=== PATIENT | male | born 1980 ===

== ENCOUNTER 2018-08-28 16:30 | Emergency (ER) | payer BC, OTHER ==
--- NOTE | 2018-08-28 18:31 | UC ---
Cardiac HPI - History of Current Complaint Chief Complaint: UCGeneralIllness Stated Complaint: RIB PAIN Time Seen by Provider: 08/28/18 18:12 Pain Intensity: 7 - Allergy/Home Medications Allergies/Adverse Reactions: Allergies Allergy/AdvReac Type Severity Reaction Status Date / Time No Known Allergies Allergy Verified 08/28/18 16:44 Home Medications: Home Medications Hydrocortisone 0.5% CM(NF) [Hydrocortisone 0.5% CREAM(NF)] 1 applic TOPICAL DAILY 08/28/18 [History Confirmed 08/28/18] PMH/Surg Hx/FS Hx/Imm Hx Previously Healthy: Yes - Surgical History Surgical History: Yes Surgery Procedure, Year, and Place: tonsils - Social History Alcohol Use: Weekly Alcohol Amount: weekends Substance Use Type: None Smoking Status (MU): Light Every Day Tobacco Smoker Physical Exam Vital Signs: Initial Vital Signs Temp 99 F 08/28/18 16:40 Pulse 85 08/28/18 16:40 Resp 18 08/28/18 16:40 BP 158/105 08/28/18 16:40 Pulse Ox 100 08/28/18 16:40 Discharge - Discharge Plan Referrals: No Primary Care Phys,NOPCP [Primary Care Provider] -
[2018-08-28] MEDS ORDERED: Famotidine TAB* 20 MG PO ONE (18:53)
[2018-08-28] MEDS ORDERED: Ketorolac INJ* 30 MG/ML 1 ML VIAL IM ONE (18:54)
--- NOTE | 2018-08-28 20:20 | UC ---
Abdominal Pain Male HPI - History of Current Complaint Chief Complaint: UCGeneralIllness Stated Complaint: RIB PAIN Time Seen by Provider: 08/28/18 18:12 Pain Intensity: 7 - Allergies/Home Medications Allergies/Adverse Reactions: Allergies Allergy/AdvReac Type Severity Reaction Status Date / Time No Known Allergies Allergy Verified 08/28/18 16:44 Home Medications: Home Medications Hydrocortisone 0.5% CM(NF) [Hydrocortisone 0.5% CREAM(NF)] 1 applic TOPICAL DAILY 08/28/18 [History Confirmed 08/28/18] PMH/Surg Hx/FS Hx/Imm Hx - Surgical History Surgical History: Yes Surgery Procedure, Year, and Place: tonsils, testicular surgery 2011 - Social History Alcohol Use: Weekly Alcohol Amount: weekends Substance Use Type: None Smoking Status (MU): Light Every Day Tobacco Smoker Physical Exam - Summary Physical Exam Summary: Vital Signs Reviewed: Yes General: well developed, well nourished male sitting in the examining table w/o any apparent distress Eyes: Positive: Conjunctiva Clear - PERRLA, EOMI, fundi grossly normal ENT: Positive: Normal ENT inspection, Hearing grossly normal, Pharynx normal, Nasal congestion - edematous and erythematous nasal mucosa, Nasal drainage - yellowish drainage, TMs normal. Negative: Tonsillar swelling, Tonsillar exudate Neck: Positive: Supple, Nontender, No Lymphadenopathy Respiratory: no orthopnea or dyspnea. Able to speak in full sentences, no retractions or accessory muscle use, no tripod position, stridor, or head bobbing. Positive breath sounds bilaterally. diffuse scattered wheezing and rhonchi on b/L lungs, no crackles or rales. Cardiovascular: Positive: RRR, No Murmur, Pulses Normal, Brisk Capillary Refill Abdomen Description: Positive: Nontender, No Organomegaly, Soft. Negative: CVA Tenderness (R), CVA Tenderness (L) Bowel Sounds: Positive: Present Musculoskeletal Exam: Normal Musculoskeletal: Positive: Strength Intact, ROM Intact, No Edema Neurological Exam: Normal Psychological Exam: Normal Skin Exam: Normal Triage Information Reviewed: Yes Vital Signs: Initial Vital Signs Temp 99 F 08/28/18 16:40 Pulse 85 08/28/18 16:40 Resp 18 08/28/18 16:40 BP 158/105 08/28/18 16:40 Pulse Ox 100 08/28/18 16:40 Abd Pain Male Course/Dx - Differential Dx/Clinical Impression Differential Diagnosis/HQI/PQRI: Pancreatitis, Peptic Ulcer Disease, Urinary Tract Infection, Other - rib contusion, spleen injury, abdominal contusion Provider Diagnosis: Contusion of rib on left side, Abdominal wall contusion, Elevated BP without diagnosis of hypertension Discharge - Sign-Out/Discharge Documenting (check all that apply): Patient Departure - D/C home All imaging exams completed and their final reports reviewed: Yes - Discharge Plan Condition: Stable Disposition: HOME Patient Education Materials: Rib Contusion (ED), Contusion in Adults (ED) Forms: *Work Release Referrals: [facility] [Outside] Additional Instructions: 1-Please take ibuprofen PO q6-8hrs prn as instructed after meals to alleviate pain and swelling. Please take famotidine PO as directed to protect your GI system while taking Ibuprofen PO. rest and avoid strenuous exercise or heavy lifting. 2-Take [place] PO as directed specially at night if pain is not controlled w/ Ibuprofen PO. 3-Please use the Incentive Spirometry as the Nurse explained to improve lung function and avoid atelectasis 4-If symptoms do not improve please f/u w/ your PCP in 3 days for further evaluation and treatment. 5-Your BP is elevated today. Please take your BP medications and decrease salt in your diet, monitor BP and if it continues to be elevated please f/u with your PCP for further management. If you develop chest pain, dizziness, visual disturbances, SOB, or severe MAKI please go immediately to the ER for further management 6- If abdominal pain becomes severe despite taking pain medication and you develop fever or nausea and vomiting please go immediately to the ER for further management - Billing Disposition and Condition Condition: STABLE Disposition: Home
[2018-08-28] MEDS ORDERED: HYDROcodone/ACETAMIN 5-325 MG* 1 TAB PO ONE (20:45)
== END 2018-08-28 20:50 | disposition home or self-care (01) ==
LOC: UCEAST 16:30
DX: S20.212A Contusion of left front wall of thorax, initial encounter (principal); S30.1XXA Contusion of abdominal wall, initial encounter; R03.0 Elevated blood-pressure reading, without diagnosis of hypertension; F17.200 Nicotine dependence, unspecified, uncomplicated; X58.XXXA Exposure to other specified factors, initial encounter; Y92.9 Unspecified place or not applicable
CPT/HCPCS: 74176; 96372; 99202; A9270-GY; G0463; J1885